=== PATIENT | female | born 1980 | race Caucasian/White ===

== ENCOUNTER 2021-12-30 13:28 | Emergency (ER) | payer OTHER ==
[2021-12-30 14:55] LABS: Absolute Lymphocytes (CBC) 1.6 K/uL (0.7-4.9); Hematocrit 39.2 % (36.0-45.0); Lymphocytes % 26.8 % (15.3-44.8); MCV 91.1 fL (80-100); MPV 7.8 fL (7.6-11.3)
[2021-12-30 15:03] LABS: Urine Blood 3+ (Negative); Urine Glucose Negative (Negative); Urine Protein 2+ (Negative); Urine Specific Gravity >=1.030 (1.005-1.030); Urine pH 5.5 (5.0-7.0)
[2021-12-30 15:12] LABS: Albumin 3.8 g/dL (3.4-5.0); Bilirubin Total 0.3 mg/dL (0.2-1.0); Potassium 3.1 mmol/L (3.5-5.1); Protein, Total 8.1 g/dL (6.4-8.2)
[2021-12-30] MEDS ORDERED: METOCLOPRAMIDE 10 MG/2mL INJ ONE (15:18)
[2021-12-30] MEDS ORDERED: DICYCLOMINE HCL 10 MG CAP ONE (15:18)
[2021-12-30] MEDS ORDERED: DIPHENHYDRAMINE 50 MG/ML VIAL ONE (15:18)
[2021-12-30] MEDS ORDERED: NA CHLORIDE 0.9% 1,000 ML ONE (15:19)
[2021-12-30] MEDS ORDERED: KETOROLAC 30 MG/ML INJ ONE (15:19)
[2021-12-30] MEDS ORDERED: POTASSIUM CL SA 10 MEQ TAB PO ONE (16:08)
--- NOTE | 2021-12-30 16:15 | ER ---
Nurse's Notes [facility] Name: Gabby Herron Age: 41 yrs Sex: Female : 1980 Arrival Date: 12/30/2021 Time: 13:31 Bed 2 Private MD: Diagnosis: Volume depletion, unspecified;Diarrhea, unspecified Presentation: 12/30 13:36 Chief complaint: N/Dx 4 days, headache since yesterday, tingling in cheeks, hands, and hb feet since this morning. Fever 2 days ago but resolved. Coronavirus screen: Client presents with at least one sign or symptom that may indicate coronavirus-19. Standard/surgical mask placed on the client. Provider contacted for isolation considerations. Ebola Screen: No symptoms or risks identified at this time. Risk Assessment: Do you want to hurt yourself or someone else? Patient reports no desire to harm self or others. Onset of symptoms was December 26, 2021. 13:36 Method Of Arrival: Ambulatory hb 13:36 Acuity: [place] 3 hb 15:00 Initial Sepsis Screen: Does the patient meet any 2 criteria? No. Patient's initial jh6 sepsis screen is negative. Does the patient have a suspected source of infection? No. Patient's initial sepsis screen is negative. Triage Assessment: 15:00 Headache History: The patient has had previous headaches. General: Appears comfortable, jh6 uncomfortable, Behavior is calm, cooperative. 15:00 Pain: Complains of pain in forehead Pain currently is 4 out of 10 on a pain scale. Also jh6 complains of nausea. Historical: - Allergies: 13:38 Latex, Natural Rubber; hb - Immunization history:: Client reports receiving the 2nd dose of the Covid vaccine. - Social history:: Smoking status: Patient denies any tobacco usage or history of. Screenin:00 Abuse screen: Denies threats or abuse. Denies injuries from another. Nutritional jh6 screening: No deficits noted. Tuberculosis screening: No symptoms or risk factors identified. Fall Risk Assessment: 15:00 General: Appears comfortable, Behavior is calm, cooperative. jh6 15:00 Pain: Complains of pain in abdomen Pain currently is 3 out of 10 on a pain scale. jh6 Quality of pain is described as crampy, Pain began 2-3 days ago. Is intermittent, Aggravated by eating, drinking. Neuro: Reports headache frontal area, since 2 days. GI: Abdomen is flat, non-distended, Bowel sounds present X 4 quads. Abd is soft X 4 quads Reports lower abdominal pain, upper abdominal pain, diarrhea, nausea, vomiting. 15:00 General: pt placed in room 2 at this time. Pt alert c/o N/V/D x 3 days with interment jh6 fever. Pt also having CAMACHO and states that she has taken her migraine meds without helping pain. . 16:05 Reassessment: Patient and/or family updated on plan of care and expected duration. Pain jh6 level reassessed. Patient is alert, oriented x 3, equal unlabored respirations, skin warm/dry/pink. Patient denies pain at this time. Patient states feeling better. Vital Signs: 13:36 BP 146 / 107; Pulse 86; Resp 16; Temp 98.1; Pulse Ox 100% on R/A; Weight 65.77 kg; hb Height 5 ft. 5 in. (165.10 cm); Pain 8/10; 15:00 BP 134 / 89; Pulse 74; Resp 17; Pulse Ox 100% ; Pain 4/10; jh6 16:10 BP 130 / 82; Pulse 70; Resp 17; Pulse Ox 100% ; Pain 0/10; jh6 13:36 Body Mass Index 24.13 (65.77 kg, 165.10 cm) hb [place] Coma Score: 16:10 Eye Response: spontaneous(4). Verbal Response: oriented(5). Motor Response: obeys kb commands(6). Total: 15. ED Course: 13:31 Patient arrived in ED. rg4 13:38 Triage completed. hb 13:38 Arm band placed on. hb 13:58 Ashley Nice FNP-C [facility]. kb 13:58 Robin White MD is Attending Physician. kb 14:45 Initial lab(s) drawn, by me, sent to lab. Inserted saline lock: 22 gauge in right dh3 forearm, using aseptic technique. Blood collected. 15:00 Placed in gown. Bed in low position. Call light in reach. Side rails up X2. Adult w/ jh6 patient. 15:03 Urine collected: clean catch specimen, [facility] 15:06 Meri Gnosalves, SYLVIA is Primary Nurse. jh6 16:06 No provider procedures requiring assistance completed. jh6 16:47 IV discontinued, intact, bleeding controlled, No redness/swelling at site. Pressure jh6 dressing applied. Administered Medications: 15:22 Drug: Benadryl (diphenhydrAMINE) 12.5 mg Route: IVP; Site: right forearm; jh6 16:48 Follow up: Response: No adverse reaction jh6 15:22 Drug: Ketorolac 30 mg Route: IVP; Site: right forearm; jh6 16:48 Follow up: Response: Pain is decreased jh6 15:22 Drug: Bentyl (dicyclomine) 20 mg Route: PO; jh6 16:48 Follow up: Response: Pain is decreased jh6 15:23 Drug: NS 0.9% 1000 ml Route: IV; Rate: 1000 ml; Site: right forearm; jh6 15:23 Drug: Reglan (metoCLOPramide) 10 mg Route: IVP; Site: right forearm; jh6 16:48 Follow up: Response: Nausea is decreased jh6 16:02 Drug: Potassium Chloride 40 mEq Route: PO; jh6 16:47 Follow up: Response: No adverse reaction jh6 Medication: 15:00 VIS not applicable for this client. 6 Outcome: 16:15 Discharge ordered by . kb 16:47 Discharged to home ambulatory. jh6 16:47 Condition: good 16:47 Discharge instructions given to patient, Instructed on discharge instructions, follow up and referral plans. Demonstrated understanding of instructions, follow-up care, medications. 16:48 Patient left the ED. 6 Signatures: Ashley Nice, ANY-C MINER OPERATOR-Hilda Penny RN RN Jamila Hathaway [facility] Meri Gonsalves RN RN 6
--- NOTE | 2021-12-30 16:15 | EDPHYS ---
Physician Documentation [facility] Name: Gabby Herron Age: 41 yrs Sex: Female : 1980 Arrival Date: 12/30/2021 Time: 13:31 Bed 2 Private MD: ED Physician Robin White HPI: 12/30 16:11 This 41 yrs old Female presents to ER via Ambulatory with complaints of Headache, kb Diarrhea, Hands/Feet Tingling. 16:11 The patient presents to the emergency department with nausea, diarrhea. Onset: The kb symptoms/episode began/occurred 4 day(s) ago. Possible causes: unknown. The symptoms are aggravated by nothing. The symptoms are alleviated by nothing. Associated signs and symptoms: Pertinent positives: diarrhea, fever, nausea. Severity of symptoms: At their worst the symptoms were moderate in the emergency department the symptoms are unchanged. The patient has not experienced similar symptoms in the past. The patient has not recently seen a physician. Pt reports fever, headache, nausea, diarrhea, abd cramping that started 4 days ago. . Historical: - Allergies: 13:38 Latex, Natural Rubber; hb - Immunization history:: Client reports receiving the 2nd dose of the Covid vaccine. - Social history:: Smoking status: Patient denies any tobacco usage or history of. ROS: 16:10 Respiratory: Negative for shortness of breath, cough, wheezing, and pleuritic chest kb pain. 16:10 Constitutional: Positive for fever. 16:10 Abdomen/GI: Positive for nausea, diarrhea, abdominal cramps. 16:10 Neuro: Positive for headache. 16:10 All other systems are negative. Exam: 16:10 Constitutional: This is a well developed, well nourished patient who is awake, alert, kb and in no acute distress. Head/Face: Normocephalic, atraumatic. ENT: Moist Mucous membranes Cardiovascular: Regular rate and rhythm with a normal S1 and S2. No gallops, murmurs, or rubs. No pulse deficits. Respiratory: Respirations even and unlabored. No increased work of breathing. Talking in full sentences Abdomen/GI: Soft, non-tender. No distention Skin: Warm, dry with normal turgor. Normal color. MS/ Extremity: Pulses equal, no cyanosis. Neurovascular intact. Full, normal range of motion. Neuro: Awake and alert, GCS 15, oriented to person, place, time, and situation. Moves all extremities. Normal gait. Psych: Awake, alert, with orientation to person, place and time. Behavior, mood, and affect are within normal limits. Vital Signs: 13:36 BP 146 / 107; Pulse 86; Resp 16; Temp 98.1; Pulse Ox 100% on R/A; Weight 65.77 kg; hb Height 5 ft. 5 in. (165.10 cm); Pain 8/10; 15:00 BP 134 / 89; Pulse 74; Resp 17; Pulse Ox 100% ; Pain 4/10; jh6 16:10 BP 130 / 82; Pulse 70; Resp 17; Pulse Ox 100% ; Pain 0/10; jh6 13:36 Body Mass Index 24.13 (65.77 kg, 165.10 cm) hb [place] Coma Score: 16:10 Eye Response: spontaneous(4). Verbal Response: oriented(5). Motor Response: obeys kb commands(6). Total: 15. MDM: 13:59 Patient medically screened. kb 16:10 Data reviewed: vital signs, nurses notes. Data interpreted: Pulse oximetry: on room air kb is 100 %. Interpretation: normal. Counseling: I had a detailed discussion with the patient and/or guardian regarding: the historical points, exam findings, and any diagnostic results supporting the discharge/admit diagnosis, lab results, the need for outpatient follow up, a family practitioner, to return to the emergency department if symptoms worsen or persist or if there are any questions or concerns that arise at home. 12/30 13:59 Order name: CBC with Diff; Complete Time: 14:58 kb 12/30 13:59 Order name: CMP; Complete Time: 15:15 kb 12/30 13:59 Order name: Lipase; Complete Time: 15:15 kb 12/30 14:23 Order name: Flu; Complete Time: 15:07 kb 12/30 14:23 Order name: COVID-19 SARS RT PCR (Document "Date of Onset" if Symptomatic); Complete kb Time: 15:56 12/30 15:04 Order name: Urine Dipstick-Ancillary; Complete Time: 15:04 EDMS 12/30 13:59 Order name: IV Saline Lock; Complete Time: 14:50 kb 12/30 13:59 Order name: Labs collected and sent; Complete Time: 14:50 kb 12/30 14:23 Order name: Urine Dipstick-Ancillary (obtain specimen); Complete Time: 15:03 kb Administered Medications: 15:22 Drug: Benadryl (diphenhydrAMINE) 12.5 mg Route: IVP; Site: right forearm; jh6 16:48 Follow up: Response: No adverse reaction jh6 15:22 Drug: Ketorolac 30 mg Route: IVP; Site: right forearm; jh6 16:48 Follow up: Response: Pain is decreased jh6 15:22 Drug: Bentyl (dicyclomine) 20 mg Route: PO; jh6 16:48 Follow up: Response: Pain is decreased jh6 15:23 Drug: NS 0.9% 1000 ml Route: IV; Rate: 1000 ml; Site: right forearm; jh6 15:23 Drug: Reglan (metoCLOPramide) 10 mg Route: IVP; Site: right forearm; jh6 16:48 Follow up: Response: Nausea is decreased jh6 16:02 Drug: Potassium Chloride 40 mEq Route: PO; jh6 16:47 Follow up: Response: No adverse reaction 6 Disposition: 17:29 Co-signature as Attending Physician, Robin White MD. rn Disposition Summary: 12/30/21 16:15 Discharge Ordered Location: Home kb Condition: Stable kb Diagnosis - Volume depletion, unspecified kb - Diarrhea, unspecified kb Followup: kb - With: Emergency Department - When: As needed - Reason: Worsening of condition Followup: kb - With: Private Physician - When: 2 - 3 days - Reason: Recheck today's complaints, Continuance of care, Re-evaluation by your physician Discharge Instructions: - Discharge Summary Sheet kb - Viral Gastroenteritis, Adult, [id number] kb Forms: - Medication Reconciliation Form kb - Thank You Letter kb - Antibiotic Education kb - Prescription Opioid Use kb - SBAR form eb - Work release form eb Prescriptions: - Zofran 4 mg Oral Tablet - take 1 tablet by ORAL route every 6 hours As needed; 20 tablet; Refills: 0, kb Product Selection Permitted - dicyclomine 20 mg Oral Tablet - take 1 tablet by ORAL route 4 times per day As needed; 20 tablet; Refills: 0, kb Product Selection Permitted Signatures: Dispatcher [employer] Ashley Dowling, FLOAT TENDER-C FLOAT TENDER-Ckb Robin Wihte MD MD rn Hilda Pennington RN RN hb Meri Gonsalves RN RN jh6
[2021-12-30 17:40] VITALS: TEMP 98.1; O2SAT 100
[2021-12-30 17:51] VITALS: BP 130/82
== END 2021-12-30 16:48 | disposition home or self-care (01) ==
LOC: ER 13:28
DX: E86.9 Volume depletion, unspecified (principal); R19.7 Diarrhea, unspecified; Z91.040 Latex allergy status; Z91.048 Other nonmedicinal substance allergy status; Z20.822 Contact with and (suspected) exposure to COVID-19
CPT/HCPCS: 85025; 36415; 81003; 83690; 80053; 87804 ×2; U0003; J2765; J1200; J7030; 96374; 96375; 99283